=== PATIENT | male | born 1995 | race Caucasian/White ===

== ENCOUNTER 2022-08-30 11:02 | Emergency (ER) | payer OTHER ==
[~2022-08-30] VITALS: Ht 185.4 cm; Wt 83.0 kg
[2022-08-30 11:03] VITALS: BP 126/76; TEMP 98.5; O2SAT 100
== END 2022-08-30 13:54 | disposition home or self-care (01) ==
LOC: M ED 11:02
DX: S90.32XA Contusion of left foot, initial encounter (principal); W20.8XXA Other cause of strike by thrown, projected or falling object, initial encounter; Z88.1 Allergy status to other antibiotic agents; Y99.9 Unspecified external cause status